=== PATIENT | female | born 1990 | race American Indian/Alaskan Native ===

== ENCOUNTER 2016-10-25 09:17 | Emergency (ER) | payer OTHER, BC ==
[2016-10-25 09:41] VITALS: BP 150/98
[2016-10-25] MEDS ORDERED: TORADOL IM ONE (10:58)
[2016-10-25] MEDS ORDERED: FLEXERIL PO ONE (10:58)
--- NOTE | 2016-10-25 11:27 | XRay Report ---
Lumbar spine 3 views: History: Midline tenderness. Findings: Normal height of vertebral bodies and intervertebral disc. Normal articular surfaces. No fracture. No paravertebral mass. Impression: Essentially negative lumbar spine.
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
== END 2016-10-25 12:12 | disposition left against medical advice (07) ==
LOC: ED 09:17
DX: S39.012A Strain of muscle, fascia and tendon of lower back, initial encounter (principal); M25.561 Pain in right knee; V49.50XA Passenger injured in collision with unspecified motor vehicles in traffic accident, initial encounter; W22.10XA Striking against or struck by unspecified automobile airbag, initial encounter; Y93.89 Activity, other specified; Y99.8 Other external cause status; Y92.89 Other specified places as the place of occurrence of the external cause
CPT/HCPCS: 72100; 96372; 99283; J1885

== ENCOUNTER 2018-03-08 10:24 | Emergency (ER) | payer BC ==
[2018-03-08 10:45] VITALS: BP 144/92
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
== END 2018-03-08 14:04 | disposition home or self-care (01) ==
LOC: ED 10:24
DX: G56.01 Carpal tunnel syndrome, right upper limb (principal); F17.200 Nicotine dependence, unspecified, uncomplicated; F12.10 Cannabis abuse, uncomplicated